=== PATIENT | female | born 1995 | race Caucasian/White ===

== ENCOUNTER 2016-08-14 09:39 | Observation (INO) | payer OTHER ==
[~2016-08-14 09:39] MED LIST: ACYCLOVIR400 MG PO; DARVOCET-N 1001 TAB PO; DEPO-PROVER150 MG/ML IM; HYDROCODON-ACE1 EA16 PO; KEFLEX500 MG PO; LYBREL; MONONESSA 28 T1 EACH PO; NO HOME MEDS; NO MEDICATIONS; NORCO 5/3251 TA2 PO; PHENERGAN25 MG PO; POTASSIUM CHLO10 ME2 PO; PRENATAL TABLE1 EAC3 PO; PRENATAL1 TAB; PRILOSEC10 MG PO; TUMS200 MG PO; ZOFRAN4 M2 PO; [UNRECOGNIZED DRUG - OTHER] PO
[2016-12-15] MEDS ORDERED: IBUPROFEN800 M1 PO (11:43)
[2016-12-15] MEDS ORDERED: NORCO 5-325 TA1 EACH PO (11:45)
== END 2016-08-14 11:10 ==
LOC: LDR 09:39
PROVIDERS: ADMIT Obstetrics & Gynecology
DX: O21.2 Late vomiting of pregnancy (principal); O99.89 Other specified diseases and conditions complicating pregnancy, childbirth and the puerperium; R10.9 Unspecified abdominal pain; Z3A.21 21 weeks gestation of pregnancy